=== PATIENT | male | born 1980 | race African-American/Black ===

== ENCOUNTER 2021-04-12 11:51 | Emergency (ER) | payer OTHER ==
[~2021-04-12] VITALS: Ht 195.6 cm; Wt 90.7 kg
--- NOTE | 2021-04-12 12:13 | NUR ---
PT IS IN ROOM #2A. DR SILVA EVALUATED THE PT.
--- NOTE | 2021-04-12 12:35 | NUR ---
PT WAS D/C'd FROM [facility]. D/C INSTRUCTIONS GIVEN TO THE PT BY DR SILVA.
[2021-04-12 12:37] VITALS: BP 145/72
== END 2021-04-12 14:04 | disposition home or self-care (01) ==
LOC: ER 11:51
DX: S90.32XA Contusion of left foot, initial encounter (principal); W20.8XXA Other cause of strike by thrown, projected or falling object, initial encounter; Y92.89 Other specified places as the place of occurrence of the external cause
CPT/HCPCS: 73630; A4663